=== PATIENT | male | born 1930 | race Caucasian/White ===

== ENCOUNTER → 2017-03-01 | Outpatient (CLI) | payer MEDICARE, OTHER ==
[~2017-03-01] MED LIST: ASPIRIN EC81 MG PO; CILOSTAZOL50 MG PO; LOTENSIN10 MG PO; MULTIVITAMINS1 EAC5 PO; ZOCOR40 MG PO
== END | disposition disaster alternative care site (69) ==
LOC: GRAD 14:45
DX: R31.9 Hematuria, unspecified (principal); N40.0 Benign prostatic hyperplasia without lower urinary tract symptoms

== ENCOUNTER 2017-03-02 05:31 | Inpatient (IN) | payer MEDICARE, OTHER ==
[~2017-03-02] VITALS: Ht 170.2 cm; Wt 76.6 kg
--- NOTE | ~2017-03-02 | DS ---
PATIENT'S NAME: LIYA MERA [facility] AGE: 87 Y [address] ROOM: [place] [address] LOCATION: [facility] [place] ADMIT DATE: 03/04/2017 Discharge Summary DISCHARGE DATE: 03/05/2017 FAMILY PHYSICIAN: Deshaun Garcia MD ATTENDING PHYSICIAN: Katja Saez HOSPITAL COURSE: An 87-year-old male who presented with gross hematuria and an abnormal CT scan. Cystoscopy was done. The bladder was normal. The bleeding was coming from the prostatic area and a TUR of the prostate was done. Postoperatively, he did fine, but his bleeding continued a little longer than usual, and he had to be in the hospital for an extra 2 days to be on CBI. He was then dismissed home with his Bergeron catheter and to follow up in the clinic. DIAGNOSES: 1. Benign prostatic hyperplasia. 2. Prostatic hemorrhage. PROCEDURE: 1. Cystoscopy, evacuation of clots. 2. TUR of the prostate. DISPOSITION: As above. KATJA SAEZ MD EKL/modl /[id number] d: 03/08/17 0527 t: 03/09/17 0441, DISCHARGE SUMMARY
--- NOTE | ~2017-03-02 | OR ---
PATIENT'S NAME: LIYA MERA [facility] AGE: 87 Y [address] ROOM: [place] [address] LOCATION: [facility] [place] ADMIT DATE: 03/02/2017 OR/Procedure Report DISCHARGE DATE: FAMILY PHYSICIAN: Deshaun Garcia MD ATTENDING PHYSICIAN: Katja Saez SURGEON: Katja Saez MD TOMBSTONE CARVER: DATE OF PROCEDURE: 03/02/2017 PREOPERATIVE DIAGNOSES: 1. Gross hematuria. 2. Possible bladder mass. POSTOPERATIVE DIAGNOSIS: Prostatic hemorrhage. PROCEDURES: 1. Cystoscopy and evacuation of clots. 2. TUR of the prostate. DESCRIPTION OF PROCEDURE: After adequate anesthesia, he was prepped and draped. Cystoscope was passed. The anterior urethra was normal. Prostatic area showed nodular regrowth, especially on the left. The bladder was filled with clots. With an Ellik evacuator, all the clots were irrigated from the bladder. The bladder was then examined. The trigone was normal. There were no tumors noted. The previously noted mass on the CT scan was probably just clots. His bleeding resolved, coming from the prostate area, especially on the left anterior portion of the prostate, the area with a significant prostatic regrowth. Resectoscope was inserted and this bleeding obstructing the prostatic tissue was all resected. Bleeders were fulgurated. Chips were irrigated from the bladder with the use of Ellik evacuator and #20 Bergeron catheter was inserted, irrigated easily and clearly and he was accompanied to the recovery area. KATJA SAEZ MD EKL/modl PATIENT'S NAME: LIYA MERA [facility] AGE: 87 Y [address] ROOM: [place] [address] LOCATION: [facility] [place] ADMIT DATE: 03/02/2017 OR/Procedure Report DISCHARGE DATE: FAMILY PHYSICIAN: Deshaun Garcia MD ATTENDING PHYSICIAN: Katja Saez /[id number] d: 03/02/17920 t: 03/03/17 0454, OPERATIVE SUMMARY
--- NOTE | ~2017-03-02 | HP ---
PATIENT'S NAME: LIYA MERA [facility] AGE: 87 Y [address] ROOM: [place] [address] LOCATION: [facility] ADMIT DATE: 03/02/2017 History & Physical DISCHARGE DATE: FAMILY PHYSICIAN: PHYSICIAN, UNKNOWN ATTENDING PHYSICIAN: Katja Saez DATE OF SERVICE: HISTORY OF PRESENT ILLNESS: An 87-year-old male who began having gross painless hematuria on 28 February. He denied any dysuria, burning, or difficulty voiding. He had no CVA or flank pain. A CT scan was done and this showed no abnormalities of the kidney. There was a possible bladder mass on the right side and he is seen now for cystoscopy and biopsy. He has a past history of having TUR of the prostate done in [place] in 1997. He was seen here in 2009, because of hematuria. At that time, his studies were unremarkable except for some prostatic regrowth. He was in the service from 1951 to 1955 and was in the [employer]. 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 PAST MEDICAL HISTORY: 1. Hypercalcemia. 2. Arteriosclerotic disease. PAST SURGICAL HISTORY: 1. Inguinal herniorrhaphy. 2. TUR of the prostate. 3. Bilateral vein ligation. 4. Stents in the lower pelvic areas. PHYSICAL EXAMINATION: General: A well-developed, well-nourished male. CHEST: Clear. HEART: Normal sinus rhythm. ABDOMEN: Soft with no palpable masses. : Uncircumcised penis. Meatus is normal. Testicles are normal. Prostate is enlarged with a flat fossa. RECTAL: Negative. IMPRESSION: Hematuria with possible bladder mass. PATIENT'S NAME: LIYA MERA [facility] AGE: 87 Y [address] ROOM: [place] [address] LOCATION: [facility] ADMIT DATE: 03/02/2017 History & Physical DISCHARGE DATE: FAMILY PHYSICIAN: PHYSICIAN, UNKNOWN ATTENDING PHYSICIAN: Katja Saez PLAN: As above. KATJA SAEZ MD EKL/modl /[id number] D: [id number] T: [id number] HISTORY & PHYSICAL
[2017-03-02 06:07] LABS: BASOPHIL % 0.6 %; EOSINOPHIL # 0.2 K/uL (0.0-0.5); EOSINOPHIL % 2.2 %; HEMATOCRIT 48.8 % (33.0-50.0); HEMOGLOBIN 16.3 g/dL (11.0-16.0); IMMATURE GRANULOCYTE % 0.1 %; LYMPHOCYTE # 1.3 K/uL (0.8-4.0); LYMPHOCYTE % 19.4 %; MCH 30.2 pg (27.0-34.0); MCHC 33.4 gm/dL (32.0-36.5); MCV 90.5 fl (83.0-98.0); MONOCYTE # 0.6 K/uL (0.0-1.0); MONOCYTE % 8.2 %; NEUTROPHIL # (ANC) 4.7 K/uL (1.4-9.0); NEUTROPHIL % 69.5 %; NRBC % 0 /100WBC (0-0.00); PLATELET COUNT 163 K/uL (150-450); RBC 5.39 M/uL (3.50-5.50); RDW-CV 12.7 % (11.9-14.6); WBC 6.8 K/uL (4.0-11.0)
[2017-03-02 06:25] LABS: ALBUMIN 4.1 gm/dL (3.5-5.0); ANION GAP 11.2 (10.0-19.0); CALCIUM 8.8 mg/dL (8.5-10.5); CREATININE 1.3 mg/dL (0.6-1.3); POTASSIUM 4.2 mMol/L (3.7-5.1); TOTAL BILIRUBIN 0.6 mg/dL (0.0-1.5); TOTAL PROTEIN 7.4 g/dL (6.0-8.4)
[2017-03-02 07:49] LABS: BILIRUBIN URINE NEGATIVE (NEGATIVE); BLOOD URINE 250 /UL (NEGATIVE); GLUCOSE URINE NEGATIVE (NEGATIVE); KETONE URINE 5 mg/dL (NEGATIVE); LEUKOCYTES URINE 25 /UL (NEGATIVE); NITRITE URINE NEGATIVE (NEGATIVE); PH URINE 6.5 (4.0-8.0); PROTEIN URINE 100 mg/dL (NEGATIVE); TURBIDITY URINE 4+ (CLEAR); UROBILINOGEN URINE NORMAL (NORMAL)
[2017-03-02 08:09] LABS: COLOR URINE OTHER (YELLOW)
[2017-03-02 08:11] LABS: BACTERIA URINE NEGATIVE (NEGATIVE); EPITHELIAL URINE NEGATIVE #/HPF (NEGATIVE); RBC URINE FULL FIELD #/HPF (NEGATIVE); WBC URINE RARE #/HPF (NEGATIVE)
--- NOTE | 2017-03-02 16:31 | NUR ---
Significant event: Urine in mast catheter light pink to clear. CBI at moderate to fast rate. Continues on bedrest. Tolerating clear liquids.
--- NOTE | 2017-03-03 04:28 | NUR ---
Pt. alert and oriented. RA. VSS. TURP yesterday AM. No c/o pain or nausea. Tolerating clear liquid diet. CBI at slower rate with light pink output. Bedrest. L) hand IV with fluids at 100ml/hour. Possible discharge today.
--- NOTE | 2017-03-03 15:41 | NUR ---
Significant Event: Patient up and ambulated in halls after lunch. Urine went darker but no clots noted. Dr. Saez up to see patient and said that if urine gets any redder than it is now that we could start the CBI back up. Patient ok to get up to bathroom and sit in chair, but will hold off until urine more clear to ambulate in halls. Patient currently still to straight drain. at bedside. Follow up: Continue to monitor.
--- NOTE | 2017-03-04 02:23 | NUR ---
Significant Event: Patient alert and oriented X4. Up with stand by assist. States he is more comfortable sleeping in the chair. Elyssa has pink urine draining, no CBI at this time. OK for bathroom and chair, but no walking in halls tonight. No clots noted in urine. L) hand IV saline locked. Vitals stable and on room air. Hoping to discharge today. Follow up: Monitor urine color
--- NOTE | 2017-03-04 11:47 | NUR ---
Met with patient on 03/02. Introduced myself and the role of the CM department. Patient is independent with all of his ADL's at home. He lives with his . He states that he has no concerns about discharging to home when medically cleared. We discussed the possibility of discharging with the mast and he states he can be taught how to care for the mast. He said his will also be willing to be taught. Patient has no discharge needs at this time. A CM will continue to follow and offer supports if needed.
--- NOTE | 2017-03-04 17:40 | NUR ---
All VSS. Patient got taken off CBI yesterday but was put back on this morning around 0900 due to persistent dark red urine. CBI on right now with moderate flow. Blanche urine out right now with some sediment. Patient denied pain throughout shift. Patient took a shower this morning and was educated on how to care for cath. Patient still seems uneasy with how to care for cath especially when he goes home (presumably tomorrow). Patient ate and drank well throughout shift. 1,510ml in and 1,500 ml out.
--- NOTE | 2017-03-04 18:23 | NUR ---
I have reviewed and agree with charting done by SN Carol.
--- NOTE | 2017-03-05 05:41 | NUR ---
Significant Event: AAOX4. REGULAR DIET. PIV TO L) HAND SL. CBI ON SLOW DRIP. FULL BAG UP (#13) FOR DAYS CREDIT. NEGRETE CATHETER IN PLACE AND PATENT. PT DENIED PAIN/SOB THROUGHOUT SHIFT. NO PRN'S ADMINISTERED. Follow up:
--- NOTE | 2017-03-05 14:45 | NUR ---
WAS DISMISSED PER W/C TO CAR [employer].BY SENIOR BUSINESS DEVELOPMENT ANALYST & FAMILY FOR PT TO BE DISMISSED TO HOME.DISCHARGE INSTRUCTIONS WERE GIVEN TO PT. & DAUGHTER.VERBALIZED UNDERSTANDMENT.CATH CARE & INSTRUCTIONS ON HOW TO EMPTY & RE-SHUT & HANDOUTS GIVEN.REFUSED TO LEARN ABOUT LEG BAG & DID NOT WANT TO MESS WITH IT SO DID NOT SEND ONE WITH HIM,ONLY THE DRAINAGE BAG(NEW ONE WAS PUT ON PRIOR TO DISCHARGE).NO C/O PAIN.
== END 2017-03-05 14:45 | disposition disaster alternative care site (69) | DRG 714 ==
LOC: GMSU 05:31 → GSDC 05:31 → GMSU 09:32 → GSDC 09:33 → GPOC 17:00 → GMSU 03-04 10:00
PROVIDERS: ADMIT Urology
PROC: 0W3R8ZZ Control Bleeding in Genitourinary Tract, Via Natural or Artificial Opening Endoscopic (ICD-10-PCS; principal; 2017-03-02)
PROC: 0VT08ZZ Resection of Prostate, Via Natural or Artificial Opening Endoscopic (ICD-10-PCS; principal; 2017-03-02)
DX: N42.1 Congestion and hemorrhage of prostate (principal); I25.10 Atherosclerotic heart disease of native coronary artery without angina pectoris
CPT/HCPCS: G0378; J0713; J2001; J7040; J7120